=== PATIENT | female | born 1950 | race Caucasian/White ===

== ENCOUNTER → 2019-04-09 | Day surgery (SDC) | payer OTHER, BC ==
--- NOTE | 2019-04-10 13:30 | PATH ---
Cytology Non-Gynecological Report Patient Name: JIMMY LOUIS [facility]. Rec. #: [id number] /Age/Gender: 1950 (Age: 69) / F Account: [id number] Location: RADIOLOGY INTER Taken: 04/09/2019 Received: 04/09/2019 Reported: 04/10/2019 Physicians: Rosa Aparicio M.D. Specimen(s) Received THYROID, LEFT, FINE NEEDLE ASPIRATION Clinical History Left lobe, 0.97 x 0.57 x 0.70 cm Final Diagnosis THYROID, LEFT, FINE NEEDLE ASPIRATION: SATISFACTORY FOR EVALUATION. B[place]ES[place] CLASS II: BENIGN. CYTOLOGIC FINDINGS ARE CONSISTENT WITH A BENIGN FOLLICULAR NODULE. SMALL FOLLICULAR CELLS, SCATTERED MACROPHAGES, AND COLLOID PRESENT. Electronically Signed Brianna Feng M.D. Gross Description Received are eight direct smears, four of which are air-dried and Diff-Quik stained, and four of which are alcohol fixed and Pap stained. Also received is 20 ml of bloody formalin from which one cellblock is prepared.
== END | disposition home or self-care (01) ==
LOC: JRADIR 08:56
PROVIDERS: ATTEND Internal Medicine Endocrinology, Diabetes & Metabolism
PROC: 0G9G3ZX Drainage of Left Thyroid Gland Lobe, Percutaneous Approach, Diagnostic (ICD-10-PCS; principal; 2019-04-09)
DX: E04.1 Nontoxic single thyroid nodule (principal)
CPT/HCPCS: 76942; 88173; 88305-TC